=== PATIENT | female | born 2005 | race Caucasian/White ===

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

== ENCOUNTER 2023-04-15 14:36 | Emergency (ER) | payer MEDICAID, SELFPAY ==
[2023-04-15 14:37] VITALS: BP 147/86; PULSE 120; RESP 22; TEMP 36.9; O2SAT 98; BMI 52.1
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
[2023-04-15] MEDS: Ketorolac 15 MG/ML Vial IM (17:32)
[2023-04-15 17:36] VITALS: BP 151/73; PULSE 92; RESP 16
== END 2023-04-15 17:51 | disposition home or self-care (01) ==
PROVIDERS: Emergency Provider Emergency Medicine; PCP Nurse Practitioner; Visit Provider Emergency Medicine
DX: S93.402A Sprain of unspecified ligament of left ankle, initial encounter (principal); S40.012A Contusion of left shoulder, initial encounter; S70.01XA Contusion of right hip, initial encounter; S00.03XA Contusion of scalp, initial encounter; S09.90XA Unspecified injury of head, initial encounter; F17.290 Nicotine dependence, other tobacco product, uncomplicated; V89.0XXA Person injured in unspecified motor-vehicle accident, nontraffic, initial encounter
CPT/HCPCS: 70450; 72125; 73030; 73502; 73610; 96372; 99284

== ENCOUNTER 2024-04-30 20:44 | Emergency (ER) | payer OTHER, SELFPAY ==
[2024-04-30 20:45] VITALS: BP 174/113; PULSE 100; RESP 18; TEMP 36.4; O2SAT 96; BMI 61.1
--- NOTE | 2024-04-30 21:32 | EX.ED.DYSGE1 ---
HPI History of Present Illness Chief Complaint: Ear Problem [facility] Medical History (Updated 04/30/24 @ 20:52 by Rola Stoll) Smoker Migraines Bicuspid aortic valve Home Medications ?Medication ?Instructions ?Recorded ?Last Taken ?Type amoxicillin 875 mg-potassium 1 tab PO BID #14 tabs 04/30/24 Unknown Rx clavulanate 125 mg tablet Allergy/AdvReac Type Severity Reaction Status Date / Time bee venom protein (honey bee) Allergy Swelling Verified 04/30/24 20:47 Social History Smoking Status: Current every day smoker tobacco type: e-cigarettes EXAM Physical Exam Const Vital Signs: 04/30/24 20:45 Temperature 97.6 F L Temperature Source Temporal Pulse Rate 100 Respiratory Rate 18 Blood Pressure 174/113 H Blood Pressure Mean 133 Pulse Ox 96 Oxygen Delivery Method Room Air [facility] [place] Narrative Medical decision making narrative: HISTORY OF PRESENT ILLNESS: 19-year-old female presents with ear pain. She states she recently had a recent cold and now has right ear pain. Denies history of diabetes. Notes a muffled quality to her hearing bilaterally. REVIEW OF SYSTEMS: Pertinent positives: Ear pain Pertinent negatives: Nausea, vomiting, chest pain, shortness of breath, abdominal pain PHYSICAL EXAM: Nursing triage notes reviewed, Vital signs reviewed Constitutional: please see [facility] HENT: MMM, no mastoid tenderness bilaterally, right TM hyperemic, there is no obvious bulging of the TM and there is no middle ear effusion. Left TM pearly quiroz with diminished cone of light. No external auditory meatus swelling or discharge noted bilaterally. Eyes: Pupils equal round and reactive to light, Extraocular muscles intact Neck: No stridor, no JVD, full neck ROM Lungs: Clear to auscultation, No wheezing or rales. No increased work of breathing, no conversational dyspnea, no accessory muscle use, no nasal flaring. No respiratory distress noted Heart: Regular rate and rhythm, No murmurs, No rubs and No gallops, 2+ distal pulses (radial, femoral, posterior tibial) in all extremities Skin: No rash or lesions noted MEDICAL DECISION MAKING: Chief Complaint: Ear pain External records reviewed: Imaging reviewed: CT scan of the brain from 2022 shows no acute intracranial finding Factors affecting care: none Social determinants of health: none History obtained from others: none Consults: none [facility] Narrative: Patient was hemodynamically stable, afebrile, and nontoxic-appearing. Exam with evidence of right ear hyperemia concerning for otitis media. I considered the following differential diagnosis: Otitis externa, otitis media, mastoiditis Exam consistent with otitis media. Will give oral antibiotics, Patient had penicillin allergy listed however she stated she has never had penicillin allergy however people in her family have had penicillin allergies. We gave oral Augmentin here without evidence of any allergic reaction. She is discharged on oral Augmentin for the next 7 days There is no mastoid tenderness to suggest mastoiditis The patient and/or family, caregivers express understanding. The patient and/or family, caregivers agrees with the plan. Shared decision making: I will have a discussion with the patient and or visitors regarding risk/benefits of further testing or admission. They will be made aware of of the risk/benefits inherent in this decision they will be given the opportunity to voice understanding. Total critical care time today provided was at least 0 [] minutes. This excludes separately billable procedures. Critical care time (if documented) is secondary to the patient having high probability of clinically significant/life threatening deterioration in the patient's condition which required my urgent intervention. Impression: 1. Ear pain 2. Acute otitis media Dispo: Discharge home This note was generated with [employer] dictation software. It may contain incorrect words, spelling, and punctuation that were not noted in review of the chart prior to signing. Discharge Plan Triage Chief Complaint: Ear Problem ED Provider: Slava Prabhakar Dx/Rx/DC Orders Instructions: ED Otitis Media Adult Prescriptions: New amoxicillin-pot clavulanate 875-125 mg tablet 1 tab PO BID Qty: 14 0RF Primary Care Provider: Care Physician,No Primary Referrals: Jessica Raymundo [employer], [employer] [Non-Staff] - Activity Restrictions/Additional Instructions: Thank you for trusting us with your care today! Please take Tylenol (2 pills, 650 mg), ibuprofen (2 pills, 400 mg) every 6 hours as needed for pain and fever control. Please take antibiotics until course complete Please return to the emergency department if your symptoms change or worsen. Please follow with your primary care physician for further outpatient evaluation and management. Print Language: Burmese Disposition Disposition: Home, Self Care
[2024-04-30] MEDS: Amox/Clavulanate 875 MG Tablet PO (22:34)
[2024-04-30 23:01] VITALS: BP 150/78; PULSE 80; RESP 18; TEMP 36.4; O2SAT 96
== END 2024-04-30 23:02 | disposition home or self-care (01) ==
PROVIDERS: Emergency Provider Emergency Medicine; Visit Provider Emergency Medicine
DX: H66.91 Otitis media, unspecified, right ear (principal); F17.290 Nicotine dependence, other tobacco product, uncomplicated
CPT/HCPCS: 99282